=== PATIENT | male | born 1995 | race Two or more races ===

== ENCOUNTER 2022-08-16 21:01 | Inpatient (IN) | payer OTHER ==
[~2022-08-16] VITALS: Ht 172.7 cm; Wt 72.0 kg
[2022-08-16 22:18] LABS: Basophils # (auto) 0 10 ^3/uL (0-0.2); Basophils % (auto) 0.5 % (0.0-2.0); Eosinophils # (auto) 0 10 ^3/uL (0-0.8); Eosinophils % (auto) 0.1 % (0.0-7.0); Hematocrit 45.6 % (41.0-53.0); Hemoglobin 15.7 g/dL (13.5-17.5); Lymphocytes # (auto) 0.7 10 ^3/uL (0.4-5.4); Lymphocytes % (auto) 6.7 % (10.0-50.0); Mean Corpuscular Hemoglobin 29.3 pg (28.0-32.0); Mean Corpuscular Hgb Conc. 34.4 g/dL (32.0-36.0); Mean Corpuscular Volume 85.4 fL (80.0-100.0); Monocytes # (auto) 0.8 10 ^3/uL (0-1.3); Monocytes % (auto) 8.5 % (0.0-12.0); Neutrophils # (auto) 8.3 10 ^3/uL (1.6-8.6); Neutrophils % (auto) 84.2 % (37.0-80.0); Nucleated Red Blood Cells % 0.1 %; Red Blood Cells 5.34 10^6/uL (4.5-5.90); Red Cell Distribution Width 12.5 % (11.8-14.3); White Blood Cell 9.8 10^3/uL (4.4-10.8)
[2022-08-16 22:35] LABS: INR 1.11 (0.9-1.15); Partial Thromboplastin Time 27.9 sec (24.6-33.4)
[2022-08-16 22:36] LABS: Albumin 4.5 g/dL (3.4-5.0); BUN/Creatinine Ratio 11.8; Calcium 9.4 mg/dL (8.5-10.1); Potassium 3.5 mmol/L (3.5-5.1)
[2022-08-16 22:39] LABS: Total Protein 7.5 g/dL (6.4-8.2)
[2022-08-16] MEDS ORDERED: IOHEXOL 350 MG/ML 100ML IJ ONE (22:50)
[2022-08-17] MEDS ORDERED: NITROGLYCERIN 0.4 MG SL TAB SL PRN (02:00)
[2022-08-17] MEDS ORDERED: MORPHINE SULFATE INJ 2 MG/ml SYRG IV PRN (02:00)
[2022-08-17] MEDS ORDERED: HYDROcodone-ACET 10/325MG TAB PO PRN (07:45)
[2022-08-17] MEDS ORDERED: ADENOSINE 61 MG in GIVE UN-DILUTED 0 ML IV ONE (08:15)
[2022-08-17] MEDS: ENOXAPARIN SOD 40 MG/0.4 ML SYRINGE SC SCH (12:44)
[2022-08-17] MEDS: LOSARTAN POTASSIUM 25 MG TAB PO SCH (12:45)
[2022-08-17] MEDS ORDERED: ATORVASTATIN 20 MG TAB PO SCH (22:00)
[2022-08-17 23:15] VITALS: BP 125/73
[2022-08-17 23:27] VITALS: BP 125/73
[2022-08-18 05:00] VITALS: BP 130/86
[2022-08-18 07:44] VITALS: BP 113/71
[2022-08-18 08:00] VITALS: BP 113/71
[2022-08-18] MEDS: ENOXAPARIN SOD 40 MG/0.4 ML SYRINGE SC SCH (10:07)
[2022-08-18] MEDS: LOSARTAN POTASSIUM 25 MG TAB PO SCH (10:13)
[2022-08-18 12:22] VITALS: BP 123/64
== END 2022-08-18 13:57 | DRG 313 ==
LOC: EEVIPCON 21:01 → ER 21:01 → EDBD 21:01 → TELE 08-17 02:11 → TELE-WESTW 08-17 22:25
PROVIDERS: ADMIT Internal Medicine; ATTEND Internal Medicine
DX: R07.9 Chest pain, unspecified (principal); I38 Endocarditis, valve unspecified; I10 Essential (primary) hypertension; Z82.49 Family history of ischemic heart disease and other diseases of the circulatory system; Q24.9 Congenital malformation of heart, unspecified; Z20.822 Contact with and (suspected) exposure to COVID-19
CPT/HCPCS: 36415; 71275; 78452; 80053; 83880; 84484; 85025; 85610; 85730; 87426; 93005; 93017; G0378; J0153